=== PATIENT | female | born 1965 | race Caucasian/White ===

== ENCOUNTER 2017-06-24 06:45 | Day surgery (SDC) | payer OTHER ==
[~2017-06-24] VITALS: Ht 157.5 cm; Wt 103.7 kg
[2017-06-24] MEDS ORDERED: BENA10TA48 PO (07:46)
[2017-06-24] MEDS ORDERED: AZAT50TA31 PO (07:46)
[2017-06-24] MEDS ORDERED: CYCL25CA10 PO (07:46)
[2017-06-24] MEDS ORDERED: ATOR40TA68 PO (07:46)
[2017-06-24 07:58] VITALS: Ht 157.5 cm; Wt 103.7 kg
[2017-06-24] MEDS ORDERED: PROPOFOL 40 ML ONE (08:17)
[2017-06-24 08:22] VITALS: BP 123/66; PULSE 59; RESP 18
--- NOTE | 2017-06-24 09:01 | OPPN ---
Date/Time of Note Date/Time of Note DATE: 06/24/17 TIME: 09:00 Operative Report Preoperative Diagnosis Screening Postoperative Diagnosis Diverticulosis Internal hemorrhoids Operation/Procedure Performed Colonoscopy Provider: BOBBI OTT MD Anesthesia Type: MAC Estimated blood loss: none Transfusion Required: no Specimen: none Grafts/Implants: none Complications: no BOBBI OTT MD Jun 24, 2017 09:01
[2017-06-24 09:20] VITALS: BP 120/74; PULSE 58; RESP 14
--- NOTE | 2017-06-24 09:56 | GILP ---
DATE OF PROCEDURE: PROCEDURE PERFORMED: Colonoscopy. SURGEON: Dr. Rose. PREOPERATIVE DIAGNOSIS: Screening colonoscopy. POSTOPERATIVE DIAGNOSES: 1. Colonoscopy all the way to the cecum. 2. Diverticulosis of the colon. 3. Internal hemorrhoids. 4. No colon neoplasm was identified. INDICATION: Ms. Nella Nunez is a 51-year-old female patient who was scheduled for screening colonoscopy. The procedure and possible complications were well explained to the patient. The patient understood and consented to the procedure. DESCRIPTION OF PROCEDURE: Under influence of anesthesia, the colonoscope was carefully introduced in the rectum, and under direct vision, it was advanced all the way to the cecum. FINDINGS: The patient had diverticulosis of the colon. She also had internal hemorrhoids. No colon neoplasm was identified. She tolerated the procedure very well. There was no complication from the procedure. At the end of procedure, she was awake with stable vital signs and she was discharged home in the care of her family. IMPRESSION: 1. Colonoscopy all the way to the cecum. 2. Diverticulosis of the colon. 3. Internal hemorrhoids. 4. No colon neoplasm was identified. PLAN: Next screening colonoscopy in 10 years. Dictated By: MD GASTON Thomas/mk/riley /Document#: [id number]
== END 2017-06-24 12:04 | disposition home or self-care (01) ==
LOC: GIL 06:45
PROVIDERS: ATTEND Internal Medicine Gastroenterology
DX: Z12.11 Encounter for screening for malignant neoplasm of colon (principal); K57.90 Diverticulosis of intestine, part unspecified, without perforation or abscess without bleeding; K64.8 Other hemorrhoids; I10 Essential (primary) hypertension; E78.5 Hyperlipidemia, unspecified; E66.01 Morbid (severe) obesity due to excess calories; Z68.41 Body mass index [BMI] 40.0-44.9, adult
CPT/HCPCS: 45378; Z7610